=== PATIENT | male | born 1940 | race Caucasian/White ===

== ENCOUNTER → 2016-08-27 | Outpatient (CLI) | payer MEDICARE, BC ==
[~2016-08-27] MED LIST: ACETAMINOPHEN325 MG PO; COLACE100 MG PO; FLEET133 ML R; FLOMAX0.4 MG PO; LOPRESSOR50 MG PO; MILK OF MA400 MG/5 M PO; MIRALAX17 GM PO; NEOSPORIN15 GM TOP; NEURONTIN100 MG PO; NEURONTIN300 MG PO; NORCO 5-325 MG1 TAB PO; ULTRAM50 MG PO
== END | disposition disaster alternative care site (69) ==
LOC: GRAD 12:45
DX: Z48.89 Encounter for other specified surgical aftercare (principal); M41.9 Scoliosis, unspecified; M47.816 Spondylosis without myelopathy or radiculopathy, lumbar region